=== PATIENT | female | born 1990 | race Caucasian/White ===

== ENCOUNTER → 2018-12-23 | Outpatient (CLI) | payer OTHER ==
[2018-12-23 13:06] LABS: PROGESTERONE 24.09 NG/ML
== END ==
LOC: M LAB 11:15
PROVIDERS: ATTEND Advanced Practice Midwife
DX: Z32.01 Encounter for pregnancy test, result positive (principal)

== ENCOUNTER → 2018-12-25 | Outpatient (CLI) | payer OTHER ==
[2018-12-25 13:11] LABS: PROGESTERONE 23.26 NG/ML
== END ==
LOC: M LAB 11:33
PROVIDERS: ATTEND Advanced Practice Midwife
DX: Z32.01 Encounter for pregnancy test, result positive (principal)

== ENCOUNTER → 2019-01-20 | Outpatient (CLI) | payer OTHER ==
[2019-01-20 13:34] LABS: BASO % 0.4 % (0.0-1.0); EOS # 0.1 10^3/uL (0.0-0.50); EOS % 0.7 % (0.0-3.0); HEMATOCRIT 38.4 % (36.0-47.0); HEMOGLOBIN 13.1 g/dl (12.0-15.5); LYMPH # 1.3 10^3/uL (1.5-6.5); LYMPH % 13.9 % (24.0-44.0); MEAN CORPUSCULAR HEMOGLOBIN 30.3 pg (27.0-33.0); MEAN CORPUSCULAR HGB CONC 34.1 g/dl (32.0-36.5); MEAN CORPUSCULAR VOLUME 88.7 fl (80.0-96.0); MONO # 0.6 10^3/uL (0.0-0.8); MONO % 6.2 % (0.0-5.0); NEUTROPHILS # 7.5 10^3/uL (1.8-7.7); NEUTROPHILS % 78.5 % (36.0-66.0); PLATELET COUNT, AUTOMATED 213 10^3/uL (150-450); RED BLOOD COUNT 4.33 10^6/uL (4.00-5.40); WHITE BLOOD COUNT 9.6 10^3/uL (4.0-10.0)
[2019-01-20 14:24] LABS: HIV 1&2 SCREEN CENTAUR NEGATIVE (NEGATIVE); RUBELLA IgG QUALITATIVE IMMUNE (IMMUNE)
[2019-01-20 14:50] LABS: CHLAMYDIA DNA AMPLIFICATION NEGATIVE (NEGATIVE); GC DNA AMPLIFICATION NEGATIVE (NEGATIVE)
== END ==
LOC: M SMT 10:26
PROVIDERS: ATTEND Specialist
DX: Z36.89 Encounter for other specified antenatal screening (principal); Z3A.09 9 weeks gestation of pregnancy

== ENCOUNTER → 2019-02-05 | Outpatient (REF) | payer OTHER | LOC: M LAB REF 17:11 | PROVIDERS: ATTEND Advanced Practice Midwife | DX: Z34.81 Encounter for supervision of other normal pregnancy, first trimester (principal) ==

== ENCOUNTER → 2019-04-01 | Outpatient (CLI) | payer OTHER ==
--- NOTE | 2019-04-01 13:48 | REP ---
OB ULTRASOUND: Real-time sonographic evaluation of the gravid uterus is performed. There is a single living intrauterine gestation with an estimated gestational age 19 weeks 1 day, EDC 11/25/2018. Today's measurements indicate appropriate growth. Biometry and Growth: BPD 42 mm = 18 weeks 5 days, 40th percentile HC 157 mm = 18 weeks 4 days, 35th percentile AC 136 mm = 19 weeks 0 days, 49th percentile FL 29 mm = 18 weeks 6 days, 44th percentile HC/AC ratio 1.15 within normal range. Estimated weight 264 grams 40th percentile. SEEN/GROSSLY UNREMARKABLE Lateral ventricles Yes Posterior fossa Yes Upper lip Yes Four-chamber heart Yes LVOT Yes RVOT Yes Stomach Yes Cord insertion Yes Three vessel cord Yes Kidneys Yes Bladder Yes Spine Yes Cervical length: Closed and measures 2.8 cm in length. heart rate: 144 beats per minute. position: Vertex. Placenta: Anterior and grade 0 with no previa or abruption. Amniotic fluid: Within normal limits. In the anterior myometrium, there is a heterogeneous area of echotexture approximately 2.6 cm in diameter, of uncertain significance. This appears separate from the placenta with no sonographic findings of placenta accreta or increta. Electronically Signed by Moe Granados MD 04/01/2019 04:17 P
== END ==
LOC: M RAD 06:55
PROVIDERS: ATTEND Specialist
DX: O34.592 Maternal care for other abnormalities of gravid uterus, second trimester (principal); Z36.89 Encounter for other specified antenatal screening; Z3A.18 18 weeks gestation of pregnancy

== ENCOUNTER → 2019-05-21 | Outpatient (CLI) | payer OTHER ==
[2019-05-21 13:19] LABS: HEMOGLOBIN 12.6 g/dl (12.0-15.5); MEAN CORPUSCULAR HEMOGLOBIN 31.4 pg (27.0-33.0); MEAN CORPUSCULAR HGB CONC 33.2 g/dl (32.0-36.5); MEAN CORPUSCULAR VOLUME 94.8 fl (80.0-96.0); PLATELET COUNT, AUTOMATED 205 10^3/uL (150-450); RED BLOOD COUNT 4.01 10^6/uL (4.00-5.40); WHITE BLOOD COUNT 7.8 10^3/uL (4.0-10.0)
== END ==
LOC: M SMT 07:55
PROVIDERS: ATTEND Advanced Practice Midwife
DX: Z34.82 Encounter for supervision of other normal pregnancy, second trimester (principal)
CPT/HCPCS: 36415; 82950; 85027; 86850; 86900; 86901; J2790

== ENCOUNTER → 2019-07-29 | Outpatient (REF) | payer OTHER ==
[~2019-07-29] MED LIST: PRENTAB55 PO; RANI150T14 PO
== END ==
LOC: M LAB REF 13:17
PROVIDERS: ATTEND Specialist
DX: Z36.85 Encounter for antenatal screening for Streptococcus B (principal)

== ENCOUNTER 2019-08-14 18:31 | Inpatient (IN) | payer OTHER ==
[~2019-08-14] VITALS: Ht 160 cm; Wt 76.7 kg
[2019-08-14] MEDS ORDERED: GNP250TA9 PO (18:45)
[2019-08-14] MEDS ORDERED: LACTATED RINGER'S 1000 ML IV STA (19:02)
[2019-08-14 19:34] LABS: HEMATOCRIT 37.1 % (36.0-47.0); HEMOGLOBIN 12.6 g/dl (12.0-15.5); MEAN CORPUSCULAR HEMOGLOBIN 31.3 pg (27.0-33.0); MEAN CORPUSCULAR VOLUME 92.3 fl (80.0-96.0); PLATELET COUNT, AUTOMATED 199 10^3/uL (150-450); RED BLOOD COUNT 4.02 10^6/uL (4.00-5.40); WHITE BLOOD COUNT 14.3 10^3/uL (4.0-10.0)
[2019-08-14] MEDS ORDERED: ceFAZolin SOD 2 GM in IV 1 EA IV ONE (20:00)
[2019-08-14] MEDS ORDERED: BICITRA 30ML SOLN UDC PO ONE (20:00)
[2019-08-14] MEDS ORDERED: LR 1,000 ML IV SCH ×3 (20:00→22:00)
[2019-08-14] MEDS ORDERED: ONDANSETRON 4MG/2ML VIAL (J2405) As Ordered ONE (20:47)
[2019-08-14] MEDS ORDERED: KETOROLAC 60 MG/2 ML VIAL (J1885) As Ordered ONE (20:47)
[2019-08-14] MEDS ORDERED: OXYTOCIN INJ 10 UNITS/ML VIAL (J2590) As Ordered ONE (20:47)
[2019-08-14] MEDS ORDERED: MORPHINE PRES-FREE INJ 10 MG/10 ML VIAL (J2274) As Ordered ONE (20:47)
[2019-08-14] MEDS ORDERED: OXYTOCIN DRIP 30 UNITS in IV 1 EA IV SCH (21:23)
[2019-08-14] MEDS ORDERED: OXYC1TAB23 PO (21:26)
[2019-08-14] MEDS ORDERED: IBUP80TA PO (21:28)
[2019-08-14] MEDS ORDERED: MEASLES,MUMPS,RUBELLA VACCINE INJ (MMR-II) (90707) SC SCH (21:30)
[2019-08-14] MEDS ORDERED: RHOGAM 300 MCG (1500 IU) INJ (J2790) IM SCH (21:30)
[2019-08-14] MEDS ORDERED: PERCOCET 5MG/325MG TAB PO PRN ×3 (21:30→22:00)
[2019-08-14] MEDS ORDERED: MOM 30ML SUSPENSION UDC PO PRN (21:30)
[2019-08-14] MEDS ORDERED: ONDANSETRON 4MG/2ML VIAL (J2405) IV PRN ×2 (21:30→22:00)
[2019-08-14] MEDS ORDERED: fentaNYL 100 MCG/2 ML INJECTION (J3010) IV PRN (22:00)
[2019-08-14] MEDS ORDERED: OXYTOCIN 30 UNITS IN 0.9% NaCl 500ML IV BAG (J2590) As Ordered ONE (22:47)
--- NOTE | 2019-08-14 23:58 | RO ---
DATE OF PROCEDURE: 08/14/2019 PREPROCEDURE DIAGNOSIS: 38 and 3/7 weeks gestation, prior section, gestational hypertension. POSTPROCEDURE DIAGNOSIS: 38 and 3/7 weeks gestation, prior section, gestational hypertension. PROCEDURE: Repeat low transverse section. SURGEON: Murali Hoover MD APPLICATION HELPER: Rebecca Kaye MD ANESTHESIA: Spinal. ESTIMATED BLOOD LOSS: 500 mL. URINE OUTPUT: 100 mL. FINDINGS: 6 pound 11 ounce, 3020 gram female , scores 8 and 9, vertex position. Normal uterus, fallopian tubes and ovaries. DESCRIPTION OF PROCEDURE: The patient was taken to the operating room where spinal anesthesia was induced. She was prepped and draped in a sterile fashion in the supine position. A Corado catheter was placed. A Pfannenstiel skin incision was made with a scalpel and carried through to the fascia. The fascia was nicked and extended. The fascia was dissected off the rectus muscles. The peritoneal cavity was entered, a bladder flap was created. Curvilinear incision was made in the lower uterine segment until bulging membranes were noted. This was extended manually. Membranes were ruptured with clear fluid noted. The was delivered from the vertex position without difficulty. The cord was doubly clamped and cut. The was handed off to the awaiting nurses. The placenta was expressed. The uterus was exteriorized and cleared of clots and debris. The uterine incision was closed with #0 Vicryl in a running locked fashion. A second imbricating layer of #0 Vicryl was placed. The uterus was placed back in the abdominal cavity. The peritoneum was closed with #2-0 Vicryl in a running fashion. The fascia was closed with #0 Vicryl in a running fashion. Deep layer was irrigated and closed with #2-0 chromic. Skin was closed with #4-0 Monocryl subcuticular sutures. Sponge, instrument, and needle counts were correct. Rebecca Kaye MD assisted throughout the procedure. He was indispensable to the successful completion of the procedure. He helped create all layers of the incision, helped deliver the fetus, and closed also some layers.
[2019-08-15] VITALS (10 sets, daily range): BP systolic 110–126; BP diastolic 55–83
[2019-08-15] MEDS: KETOROLAC 30 MG/ML VIAL (J1885) IV SCH ×3 (03:10→15:13)
[2019-08-15] MEDS ORDERED: PROMETHAZINE INJ 25 MG/ML VIAL (J2550) IV PRN (03:15)
[2019-08-15 07:26] LABS: HEMATOCRIT 32.8 % (36.0-47.0); HEMOGLOBIN 11.1 g/dl (12.0-15.5); MEAN CORPUSCULAR HGB CONC 33.8 g/dl (32.0-36.5); MEAN CORPUSCULAR VOLUME 91.6 fl (80.0-96.0); PLATELET COUNT, AUTOMATED 149 10^3/uL (150-450); RED BLOOD COUNT 3.58 10^6/uL (4.00-5.40); WHITE BLOOD COUNT 12.8 10^3/uL (4.0-10.0)
[2019-08-15] MEDS: DOCUSATE SODIUM 100 MG CAP PO SCH ×2 (07:43→20:12)
--- NOTE | 2019-08-15 08:16 | IPNPDOC ---
Text Note Date of Service The patient was seen on 08/15/19. NOTE Postop Feels well. Adequate pain management. Corado just removed, due to void. + flatus VSS, afebrile, normotensive Breasts soft, nipples intact Fundus firm, NT Dressing intact with old drainage Scant lochia rubra without odor PO #1 Anticipate D/C in am VS,Fishbone, I+O VS, Fishbone, I+O Laboratory Tests 08/14/19 19:25 Red Blood Count 4.02, Mean Corpuscular Volume 92.3, Mean Corpuscular Hemoglobin 31.3, Mean Corpuscular Hemoglobin Concent 34.0, Red Cell Distribution Width 12.9 08/15/19 07:11 Red Blood Count 3.58 L, Mean Corpuscular Volume 91.6, Mean Corpuscular Hemoglobin 31.0, Mean Corpuscular Hemoglobin Concent 33.8, Red Cell Distribution Width 12.7 Vital Signs Date Time Temp Pulse Resp B/P (MAP) Pulse Ox O2 Delivery O2 Flow Rate FiO2 08/15/19 06:19 98.0 89 17 118/56 (76) 97 I&O- Last 24 Hours up to 6 AM 08/15/19 05:59 Intake Total 1500 ml Output Total 2375 ml Balance -875 ml Anahi Regalado CNM Aug 15, 2019 08:16
[2019-08-15] MEDS ORDERED: PRENATAL VITAMINS CHEWABLE TABLET PO SCH ×2 (09:00→21:00)
[2019-08-15] MEDS: IBUPROFEN 800 MG TAB PO SCH (22:35)
[2019-08-16 01:59] VITALS: BP 115/69
[2019-08-16 05:30] VITALS: BP 125/81
[2019-08-16] MEDS: DOCUSATE SODIUM 100 MG CAP PO SCH (08:17)
[2019-08-16] MEDS: IBUPROFEN 800 MG TAB PO SCH (08:18)
== END 2019-08-16 12:40 | disposition home or self-care (01) | DRG 773 ==
LOC: M LDI 18:31 → M OBS 23:46
PROVIDERS: ADMIT Specialist; ATTEND Specialist
PROC: 10D00Z1 Extraction of Products of Conception, Low, Open Approach (ICD-10-PCS; principal; 2019-08-14 20:33)
DX: O13.4 Gestational [pregnancy-induced] hypertension without significant proteinuria, complicating childbirth (principal); O34.211 Maternal care for low transverse scar from previous cesarean delivery; Z3A.38 38 weeks gestation of pregnancy; Z37.0 Single live birth